=== PATIENT | female | born 1975 | race Caucasian/White ===

== ENCOUNTER 2019-03-03 19:47 | Inpatient (IN) | payer OTHER ==
[2019-03-03 19:58] VITALS: BMI 29.7
[2019-03-03] MEDS ORDERED: Albuterol-Ipratrop 3 mg / 0.5 (3 ml) UD IH STA (20:08)
--- NOTE | 2019-03-03 20:13 | ED PDOC ---
Arrival/HPI - General Chief Complaint: Shortness Of Breath Time Seen by Provider: 03/03/19 19:53 Historian: Patient - History of Present Illness Narrative History of Present Illness (Text): 03/03/19 20:11 A 43 year old female, whose past medical history includes hypothyroidism/Eneida's disease, presents to the emergency department complaining of shortness of breath since last night. Patient reports she has such difficulty breathing, she feels the need to take deep breaths. Patient denies any chest pain, back pain, fever, chills, cough, or any other complaints at this time. Time/Duration: Other (since last night) Past Medical History - Provider Review Nursing Documentation Reviewed: Yes - Cardiac Hx Cardiac Disorders: No - Pulmonary Hx Respiratory Disorders: No - Neurological Hx Neurological Disorder: No - HEENT Hx HEENT Disorder: No - Renal Hx Renal Disorder: No - Endocrine/Metabolic Hx Endocrine Disorders: Yes Hx Hypothyroidism: Yes (with Eneida's) - Hematological/Oncological Hx Blood Disorders: No - Integumentary Hx Dermatological Disorder: No - Musculoskeletal/Rheumatological Hx Musculoskeletal Disorders: No - Gastrointestinal Hx Gastrointestinal Disorders: No - Genitourinary/Gynecological Hx Genitourinary Disorders: No - Psychiatric Hx Psychophysiologic Disorder: No Hx Substance Use: No Family/Social History - Physician Review Nursing Documentation Reviewed: Yes Family/Social History: No Known Family HX Smoking Status: Light Smoker < 10 Cigarettes Daily Hx Alcohol Use: No Hx Substance Use: No Allergies/Home Meds Allergies/Adverse Reactions: Allergies Penicillins Allergy (Verified 03/03/19 19:57) RASH Home Medications: Home Meds Medication Instructions Recorded Confirmed Levothyroxine [Levoxyl] 0.175 mg PO DAILY 03/03/19 03/03/19 Review of Systems - Physician Review All systems were reviewed & negative as marked: Yes - Review of Systems Constitutional: absent: Fevers, Night Sweats Respiratory: SOB. absent: Cough Cardiovascular: absent: Chest Pain Musculoskeletal: absent: Back Pain Physical Exam Vital Signs Reviewed: Yes Vital Signs Pulse Resp BP Pulse Ox 03/03/19 19:58 106 H 20 140/86 100 Blood Pressure: Normal Pulse: Tachycardic Respiratory Rate: Normal Appearance: Positive for: Well-Appearing, Non-Toxic, Comfortable Pain Distress: None Mental Status: Positive for: Alert and Oriented X 3 - Systems Exam Head: Present: Atraumatic, Normocephalic Pupils: Present: PERRL Extroacular Muscles: Present: EOMI Conjunctiva: Present: Other (pale) Mouth: Present: Moist Mucous Membranes Neck: Present: Normal Range of Motion, Other (neck supple) Respiratory/Chest: Present: Clear to Auscultation, Good Air Exchange. No: Respiratory Distress, Accessory Muscle Use Cardiovascular: Present: Normal S1, S2, Tachycardic. No: Murmurs Abdomen: No: Tenderness, Distention, Peritoneal Signs Upper Extremity: Present: Normal Inspection. No: Cyanosis, Edema Lower Extremity: Present: Normal Inspection, NORMAL PULSES, Normal ROM. No: Edema, CALF TENDERNESS, Cyanosis Neurological: Present: GCS=15, CN II-XII Intact, Speech Normal Skin: Present: Warm, Dry, Pale. No: Rashes Psychiatric: Present: Alert, Oriented x 3, Normal Insight, Normal Concentration Medical Decision Making ED Course and Treatment: 03/03/19 20:13 Impression: 43 year old female with shortness of breath. Physical exam shows patient is tachycardic. Plan: -- EKG -- Chest X-ray -- Albuterol -- Labs -- CT Angio PE Protocol -- Reassess and disposition Progress Notes: EKG: Ordered, reviewed, and independently interpreted the EKG. Rate : 102 BPM Rhythm : Sinus tachycardia Interpretation : Non-specific ST- and T- wave changes. Comparison : No previous EKG for comparison. 03/03/19 21:36 Case discussed with manager of medical and Dr. Franco who is aware and agrees with the plan. Accepts patient into hospitalist service. EXAM: CTA Chest with Intravenous Contrast for Pulmonary Embolism Electronically signed on March 03, 2019 10:45:49 PM EDT by: Mik Cuevas M.D. IMPRESSION: Unremarkable pulmonary embolism protocol CTA of the chest. - RAD Interpretation Radiology Orders: 03/03/19 20:03 CHEST PORTABLE [RAD] Stat - Medication Orders Current Medication Orders: Albuterol/Ipratropium (Duoneb 3 Mg/0.5 Mg (3 Ml) Ud) 3 ml IH ONCE STA Stop: 03/03/19 20:09 - Scribe Statement The provider has reviewed the documentation as recorded by the Gretta Pineda Provider Scribe Attestation: All medical record entries made by the Scribe were at my direction and personally dictated by me. I have reviewed the chart and agree that the record accurately reflects my personal performance of the history, physical exam, medical decision making, and the department course for this patient. I have also personally directed, reviewed, and agree with the discharge instructions and disposition. Disposition/Present on Arrival - Present on Arrival Any Indicators Present on Arrival: No History of DVT/PE: No History of Uncontrolled Diabetes: No Urinary Catheter: No History of Decub. Ulcer: No History Surgical Site Infection Following: None - Disposition Have Diagnosis and Disposition been Completed?: Yes Diagnosis: Anemia, Dyspnea Disposition: HOSPITALIZED Disposition Time: 23:44 Patient Plan: Admission Patient Problems: Current Active Problems Problem Status Onset Anemia Acute Dyspnea Acute Condition: STABLE
[2019-03-03 20:32] LABS: HEMOGLOBIN 7.4 g/dL (12.0-16.0); MEAN CELL VOLUME 58.7 fl (80.0-105.0); MEAN CORPUSCULAR HEMOGLOBIN 16.3 pg (25.0-35.0); MEAN CORPUSCULAR HGB CONC 27.8 g/dl (31.0-37.0); PLATELET COUNT 279 10^3/uL (120.0-450.0); RBC 4.53 10^6/uL (3.5-6.1); RED CELL DISTRIBUTION WIDTH 19.2 % (11.5-14.5)
[2019-03-03 20:36] LABS: INR 1.16; PROTHROMBIN TIME 12.9 SECONDS (9.4-12.5)
[2019-03-03 20:37] LABS: ALB/GLOB RATIO 1.5 (1.1-1.8); ALBUMIN 4.2 g/dL (3.0-4.8); ALT/SGPT 24 U/L (7-56); AST/SGOT 22 U/L (14-36); BLOOD UREA NITROGEN 12 mg/dL (7-21); CALCIUM 9.2 mg/dL (8.4-10.5); GFR NON-AFRICAN AMERICAN > 60
[2019-03-03 20:48] LABS: TROPONIN I < 0.01 ng/mL
[2019-03-03 20:57] LABS: FREE T4 1.44 ng/dL (0.78-2.19)
[2019-03-03] MEDS ORDERED: Iohexol 350 MG/100 ML VIAL ONE (21:23)
--- NOTE | 2019-03-03 23:05 | CP.PCM.HP ---
<Dorian Christensen - Last Filed: 03/04/19 01:30> History of Present Illness - History of Present Illness History of Present Illness: Dorian Christensen, PGY1 Hospital H&P This is a 43 year old female with PMH of hypothyroidism and ?anxiety presenting to the hospital for one day history of SOB and generalized weakness over the last couple of months. Patient states she was in bed and suddenly developed SOB and began gasping for air. Symptoms last approximately 30 minutes and were associated with nausea. Symptoms were exacerbating by laying flat and anxiety and improved with sitting up. Patient denies formally being diagnosed with anxiety but admits anxiety throughout her adult life for which she smokes cigarettes. She also admits to generalized weakness over the last 3-4 months and is unsure of the etiology. She admits to irrgeular menstrual cycles over the last one year associated with heavy bleeding as well as passage of clots. Her LMP was February 20 and lasted until February 27, 2019. She admits to sexual contact with her partner and uses contraception. She currently denies CP, fevers, vom iting, abdominal pain, urinary complaints, numbness, tingling, swelling, diarrhea, constipation, headaches, dizziness, recent travel, recent sickness, recent trauma and recent lifestyle change. 12 point ROS noted here, otherwise unremarkable. PMH: hypothyroidism and ?anxiety PMD: denies Meds: levothyroxine 175mcg SH: admits to smoking 3 ciggs/day for 18 years, denies alcohol and drug use Sx: denies surgeries All: PCN FH: denies LMP: February 20, lasted 7 days, associated with heavy bleeding and passage of clots Present on Admission - Present on Admission Any Indicators Present on Admission: No Past Patient History - Past Social History Smoking Status: Light Smoker < 10 Cigarettes Daily - CARDIAC Hx Cardiac Disorders: No - PULMONARY Hx Respiratory Disorders: No - NEUROLOGICAL Hx Neurological Disorder: No - HEENT Hx HEENT Problems: No - RENAL Hx Chronic Kidney Disease: No - ENDOCRINE/METABOLIC Hx Endocrine Disorders: Yes Hx Hypothyroidism: Yes (with Eneida's) - HEMATOLOGICAL/ONCOLOGICAL Hx Blood Disorders: No - INTEGUMENTARY Hx Dermatological Problems: No - MUSCULOSKELETAL/RHEUMATOLOGICAL Hx Musculoskeletal Disorders: No - GASTROINTESTINAL Hx Gastrointestinal Disorders: No - GENITOURINARY/GYNECOLOGICAL Hx Genitourinary Disorders: No - PSYCHIATRIC Hx Psychophysiologic Disorder: No Hx Substance Use: No - SURGICAL HISTORY Hx Surgeries: No Meds Allergies/Adverse Reactions: Allergies Allergy/AdvReac Type Severity Reaction Status Date / Time Penicillins Allergy RASH Verified 03/03/19 19:57 Physical Exam - Constitutional Appears: No Acute Distress - Head Exam Head Exam: ATRAUMATIC, NORMAL INSPECTION - Eye Exam Eye Exam: EOMI Pupil Exam: PERRL - ENT Exam ENT Exam: Mucous Membranes Dry - Neck Exam Neck exam: Positive for: Normal Inspection - Respiratory Exam Respiratory Exam: Clear to Auscultation Bilateral. absent: Accessory Muscle Use, Wheezes, Respiratory Distress - Cardiovascular Exam Cardiovascular Exam: REGULAR RHYTHM, +S1, +S2 - GI/Abdominal Exam GI & Abdominal Exam: Normal Bowel Sounds, Soft. absent: Firm, Guarding, Rebound, Rigid, Tenderness - Extremities Exam Extremities exam: Positive for: normal inspection, pedal pulses present. Negative for: calf tenderness - Back Exam Back exam: NORMAL INSPECTION - Neurological Exam Neurological exam: Alert, CN II-XII Intact, Oriented x3 - Skin Skin Exam: Dry, Pallor, Warm Results - Vital Signs Recent Vital Signs: Last Vital Signs Temp Pulse 88 03/03/19 21:53 Resp 20 03/03/19 21:53 BP 113/70 03/03/19 21:53 Pulse Ox 100 03/03/19 21:53 - Labs Result Diagrams: 03/03/19 20:18 03/03/19 20:18 Labs: Laboratory Results - last 24 hr 03/03/19 03/03/19 03/03/19 20:18 20:18 20:18 WBC RBC Hgb Hct MCV MCH MCHC RDW Plt Count PT 12.9 H INR 1.16 APTT 28.0 D-Dimer, Quantitative Sodium 140 Potassium 4.2 Chloride 107 Carbon Dioxide 23 Anion Gap 14 BUN 12 Creatinine 0.6 L Est GFR ( Amer) > 60 Est GFR (Non-Af Amer) > 60 Random Glucose 111 H Calcium 9.2 Total Bilirubin 0.4 AST 22 ALT 24 Alkaline Phosphatase 65 Lactate Dehydrogenase 420 Total Creatine Kinase 47 Troponin I < 0.01 Total Protein 7.1 Albumin 4.2 Globulin 2.9 Albumin/Globulin Ratio 1.5 Free T4 1.44 TSH 3rd Generation 8.50 H 03/03/19 03/03/19 20:18 20:18 WBC 6.0 RBC 4.53 Hgb 7.4 L Hct 26.6 L MCV 58.7 L MCH 16.3 L MCHC 27.8 L RDW 19.2 H Plt Count 279 PT INR APTT D-Dimer, Quantitative 270 H Sodium Potassium Chloride Carbon Dioxide Anion Gap BUN Creatinine Est GFR ( Amer) Est GFR (Non-Af Amer) Random Glucose Calcium Total Bilirubin AST ALT Alkaline Phosphatase Lactate Dehydrogenase Total Creatine Kinase Troponin I Total Protein Albumin Globulin Albumin/Globulin Ratio Free T4 TSH 3rd Generation Assessment & Plan - Assessment and Plan (Free Text) Assessment: This is a 43 year old female with PMH of hypothyroidism and ?anxiety presenting to the hospital for one day history of SOB and generalized weakness over the last couple of months. Plan: SOB -2/2 anemia vs anxiety -Hg of 7.4 on admission, MCV of 58.7 -iron studies pending -receiving 1 unit PRBC in the ED -mildly elevated d-dimer -CTA pending Hx of hypothyroidism -continue levothyroxine 175mcg -TSH of 8.5, free T4 of 1.44 PPX -pepcid -SCD -regular diet Patient seen and case discussed with attending, Dr. Franco <Claire Franco - Last Filed: 03/04/19 05:17> Results - Vital Signs Recent Vital Signs: Last Vital Signs Temp 98.4 F 03/04/19 03:16 Pulse 76 03/04/19 03:16 Resp 18 03/04/19 03:16 BP 104/65 03/04/19 03:16 Pulse Ox 98 03/04/19 01:11 - Labs Result Diagrams: 03/03/19 20:18 03/03/19 20:18 Labs: Laboratory Results - last 24 hr 03/03/19 03/03/19 03/03/19 20:18 20:18 20:18 WBC RBC Hgb Hct MCV MCH MCHC RDW Plt Count Retic Count PT 12.9 H INR 1.16 APTT 28.0 D-Dimer, Quantitative Sodium 140 Potassium 4.2 Chloride 107 Carbon Dioxide 23 Anion Gap 14 BUN 12 Creatinine 0.6 L Est GFR ( Amer) > 60 Est GFR (Non-Af Amer) > 60 Random Glucose 111 H Calcium 9.2 Iron TIBC % Saturation Total Bilirubin 0.4 AST 22 ALT 24 Alkaline Phosphatase 65 Lactate Dehydrogenase 420 Total Creatine Kinase 47 Troponin I < 0.01 Total Protein 7.1 Albumin 4.2 Globulin 2.9 Albumin/Globulin Ratio 1.5 Free T4 1.44 TSH 3rd Generation 8.50 H Blood Type Blood Type Confirm Antibody Screen Crossmatch BBK History Checked 03/03/19 03/03/19 03/03/19 20:18 20:18 20:18 WBC 6.0 RBC 4.53 Hgb 7.4 L Hct 26.6 L MCV 58.7 L MCH 16.3 L MCHC 27.8 L RDW 19.2 H Plt Count 279 Retic Count 1.71 H PT INR APTT D-Dimer, Quantitative 270 H Sodium Potassium Chloride Carbon Dioxide Anion Gap BUN Creatinine Est GFR ( Amer) Est GFR (Non-Af Amer) Random Glucose Calcium Iron TIBC % Saturation Total Bilirubin AST ALT Alkaline Phosphatase Lactate Dehydrogenase Total Creatine Kinase Troponin I Total Protein Albumin Globulin Albumin/Globulin Ratio Free T4 TSH 3rd Generation Blood Type Blood Type Confirm Antibody Screen Crossmatch BBK History Checked 03/03/19 03/03/19 03/04/19 20:18 23:02 00:44 WBC RBC Hgb Hct MCV MCH MCHC RDW Plt Count Retic Count PT INR APTT D-Dimer, Quantitative Sodium Potassium Chloride Carbon Dioxide Anion Gap BUN Creatinine Est GFR ( Amer) Est GFR (Non-Af Amer) Random Glucose Calcium Iron 19 L TIBC 338 % Saturation 6 L Total Bilirubin AST ALT Alkaline Phosphatase Lactate Dehydrogenase Total Creatine Kinase Troponin I Total Protein Albumin Globulin Albumin/Globulin Ratio Free T4 TSH 3rd Generation Blood Type O POSITIVE Blood Type Confirm O POSITIVE Antibody Screen Negative Crossmatch See Detail BBK History Checked No verified bt Attending/Attestation - Attestation I have personally seen and examined this patient.: Yes I have fully participated in the care of the patient.: Yes I have reviewed all pertinent clinical information: Yes
[2019-03-04 00:07] LABS: IRON 19 ug/dL (45-180)
[2019-03-04 00:17] LABS: % IRON SATURATION 6 % (20-55); TOTAL IRON BINDING CAPACITY 338 ug/dL (265-497)
[2019-03-04 05:27] VITALS: BP 118/70; PULSE 73
[2019-03-04 07:40] LABS: BASO # 0.01 K/mm3 (0.0-2.0); BASO % 0.2 % (0.0-3.0); EOS % 0.7 % (1.5-5.0); LYMPH # 1.8 (1.2-3.4); LYMPH % 31.1 % (22.0-35.0); MEAN CELL VOLUME 60.6 fl (80.0-105.0); MEAN CORPUSCULAR HGB CONC 28.1 g/dl (31.0-37.0); MONO # 0.3 (0.1-0.6); MONO % 4.4 % (1.0-6.0); PLATELET COUNT 276 10^3/uL (120.0-450.0); RED CELL DISTRIBUTION WIDTH 21.9 % (11.5-14.5); WHITE BLOOD COUNT 5.7 10^3/uL (4.5-11.0)
[2019-03-04 07:44] LABS: ALB/GLOB RATIO 1.4 (1.1-1.8); ALBUMIN 3.9 g/dL (3.0-4.8); ALT/SGPT 20 U/L (7-56); AST/SGOT 18 U/L (14-36); BLOOD UREA NITROGEN 8 mg/dL (7-21); CALCIUM 8.8 mg/dL (8.4-10.5); GFR NON-AFRICAN AMERICAN > 60
[2019-03-04 07:50] VITALS: RESP 20; TEMP 98.1; O2SAT 97
[2019-03-04] MEDS ORDERED: Levothyroxine 175 MCG TAB PO SCH (10:00)
[2019-03-04] MEDS ORDERED: Enoxaparin 40 mg Syringe SC SCH (10:00)
--- NOTE | 2019-03-04 10:46 | CARD ---
APPROVED REPORT Date of service: 03/03/2019 EKG Measurement Heart [id number] <Conclusion> Sinus tachycardia Otherwise normal ECG
--- NOTE | 2019-03-04 11:11 | CT ---
Date of service: 03/03/2019 PROCEDURE: CT Chest with contrast (Pulmonary Angiogram) HISTORY: sob COMPARISON: None available. TECHNIQUE: Axial computed tomography images were obtained of the chest in the pulmonary arterial phase of enhancement. Coronal and sagittal reformatted images were created and reviewed. Intravenous contrast dose: 93 mL Omnipaque 350 Radiation dose: Total exam DLP = 576.36 mGy-cm. This CT exam was performed using one or more of the following dose reduction techniques: Automated exposure control, adjustment of the mA and/or kV according to patient size, and/or use of iterative reconstruction technique. FINDINGS: PULMONARY ARTERIES: Unremarkable. No pulmonary embolism. AORTA: No acute findings. No thoracic aortic aneurysm. No aortic atherosclerotic calcification or mural plaque present. LUNGS: Unremarkable. No nodule, mass or pulmonary consolidation. PLEURAL SPACES: Unremarkable. No effusion or pneumothorax. HEART: Unremarkable. No cardiomegaly. No significant pericardial effusion. LYMPH NODES: No lymphadenopathy. BONES, CHEST WALL: Unremarkable. No fracture or destructive lesion OTHER FINDINGS: Nonspecific hypodense area in the left hepatic lobe measuring 3.2 x 2.0 cm. Small hiatal hernia. IMPRESSION: Unremarkable CT pulmonary angiogram. No pulmonary embolus. Nonspecific hypodense area in the left hepatic lobe measuring 3.2 x 2.0 cm. Multiphasic contrast-enhanced CT/MRI of the liver can be obtained for further characterization. This finding was not reported by tele radiology.
--- NOTE | 2019-03-04 11:12 | RAD ---
Date of service: 03/03/2019 PROCEDURE: CHEST RADIOGRAPH, 1 VIEW HISTORY: sob COMPARISON: None available. FINDINGS: LUNGS: Clear. PLEURA: No pneumothorax or pleural fluid seen. CARDIOVASCULAR: No aortic atherosclerotic calcification present. Normal. OSSEOUS STRUCTURES: No significant abnormalities. VISUALIZED UPPER ABDOMEN: Normal. OTHER FINDINGS: None. IMPRESSION: No active disease.
--- NOTE | 2019-03-04 11:15 | CP.PCM.DIS ---
<Dorian Christensen - Last Filed: 03/04/19 11:05> Provider - Provider Date of Admission: 03/03/19 23:45 Attending physician: Anne Marie Mclaughlin DO Primary care physician: NO PRIMARY CARE PROVIDER Time Spent in preparation of Discharge (in minutes): 35 Hospital Course - Lab Results Lab Results: Most Recent Lab Values WBC 5.7 10^3/uL (4.5-11.0) 03/04/19 06:30 RBC 4.70 10^6/uL (3.5-6.1) 03/04/19 06:30 Hgb 8.0 g/dL (12.0-16.0) L 03/04/19 06:30 Hct 28.5 % (36.0-48.0) L 03/04/19 06:30 MCV 60.6 fl (80.0-105.0) L 03/04/19 06:30 MCH 17.0 pg (25.0-35.0) L 03/04/19 06:30 MCHC 28.1 g/dl (31.0-37.0) L 03/04/19 06:30 RDW 21.9 % (11.5-14.5) H 03/04/19 06:30 Plt Count 276 10^3/uL (120.0-450.0) 03/04/19 06:30 Neut % (Auto) 63.6 % (50.0-68.0) 03/04/19 06:30 Lymph % (Auto) 31.1 % (22.0-35.0) 03/04/19 06:30 Grayson % (Auto) 4.4 % (1.0-6.0) 03/04/19 06:30 Eos % (Auto) 0.7 % (1.5-5.0) L 03/04/19 06:30 Baso % (Auto) 0.2 % (0.0-3.0) 03/04/19 06:30 Lymph # (Auto) 1.8 (1.2-3.4) 03/04/19 06:30 Grayson # (Auto) 0.3 (0.1-0.6) 03/04/19 06:30 Eos # (Auto) 0.0 (0.0-0.7) 03/04/19 06:30 Baso # (Auto) 0.01 K/mm3 (0.0-2.0) 03/04/19 06:30 Absolute Neuts (auto) 3.64 (1.4-6.5) 03/04/19 06:30 Retic Count 1.71 % (0.5-1.5) H 03/03/19 20:18 PT 12.9 SECONDS (9.4-12.5) H 03/03/19 20:18 INR 1.16 03/03/19 20:18 APTT 28.0 Seconds (26.9-38.3) 03/03/19 20:18 D-Dimer, Quantitative 270 ng/mlDDU (0-243) H 03/03/19 20:18 Sodium 137 mmol/L (132-148) 03/04/19 06:30 Potassium 3.6 mmol/L (3.6-5.0) 03/04/19 06:30 Chloride 106 mmol/L (98-107) 03/04/19 06:30 Carbon Dioxide 24 mmol/L (21-33) 03/04/19 06:30 Anion Gap 11 (10-20) 03/04/19 06:30 BUN 8 mg/dL (7-21) 03/04/19 06:30 Creatinine 0.6 mg/dl (0.7-1.2) L 03/04/19 06:30 Est GFR ( Amer) > 60 03/04/19 06:30 Est GFR (Non-Af Amer) > 60 03/04/19 06:30 Random Glucose 101 mg/dL (70-110) 03/04/19 06:30 Calcium 8.8 mg/dL (8.4-10.5) 03/04/19 06:30 Phosphorus 4.1 mg/dL (2.5-4.5) 03/04/19 06:30 Magnesium 2.0 mg/dL (1.7-2.2) 03/04/19 06:30 Iron 19 ug/dL (45-180) L 03/03/19 20:18 TIBC 338 ug/dL (265-497) 03/03/19 20:18 % Saturation 6 % (20-55) L 03/03/19 20:18 Total Bilirubin 0.5 mg/dL (0.2-1.3) 03/04/19 06:30 AST 18 U/L (14-36) 03/04/19 06:30 ALT 20 U/L (7-56) 03/04/19 06:30 Alkaline Phosphatase 68 U/L (38-126) 03/04/19 06:30 Lactate Dehydrogenase 420 U/L (333-699) 03/03/19 20:18 Total Creatine Kinase 47 U/L (35-230) 03/03/19 20:18 Troponin I < 0.01 ng/mL 03/03/19 20:18 Total Protein 6.6 g/dL (5.8-8.3) 03/04/19 06:30 Albumin 3.9 g/dL (3.0-4.8) 03/04/19 06:30 Globulin 2.8 gm/dL 03/04/19 06:30 Albumin/Globulin Ratio 1.4 (1.1-1.8) 03/04/19 06:30 Free T4 1.44 ng/dL (0.78-2.19) 03/03/19 20:18 TSH 3rd Generation 8.50 mIU/mL (0.46-4.68) H 03/03/19 20:18 Blood Type O POSITIVE 03/03/19 23:02 Blood Type Confirm O POSITIVE 03/04/19 00:44 Antibody Screen Negative 03/03/19 23:02 Crossmatch See Detail 03/03/19 23:02 BBK History Checked No verified bt 03/03/19 23:02 Physical Exam - Constitutional Appears: No Acute Distress - Head Exam Head Exam: ATRAUMATIC, NORMAL INSPECTION - Eye Exam Eye Exam: EOMI Pupil Exam: PERRL - ENT Exam ENT Exam: Mucous Membranes moist - Neck Exam Neck exam: Positive for: Normal Inspection - Respiratory Exam Respiratory Exam: Clear to Auscultation Bilateral. absent: Accessory Muscle Use, Wheezes, Respiratory Distress - Cardiovascular Exam Cardiovascular Exam: REGULAR RHYTHM, +S1, +S2 - GI/Abdominal Exam GI & Abdominal Exam: Normal Bowel Sounds, Soft. absent: Firm, Guarding, Rebound, Rigid, Tenderness - Extremities Exam Extremities exam: Positive for: normal inspection, pedal pulses present. Negative for: calf tenderness - Back Exam Back exam: NORMAL INSPECTION - Neurological Exam Neurological exam: Alert, CN II-XII Intact, Oriented x3 - Skin Skin Exam: Dry, Warm - Hospital Course Hospital Course: Upon admission, 43 year old female with PMH of hypothyroidism and ?anxiety presenting to the hospital for one day history of SOB and generalized weakness over the last couple of months. Patient states she was in bed and suddenly developed SOB and began gasping for air. Symptoms last approximately 30 minutes and were associated with nausea. Symptoms were exacerbating by laying flat and anxiety and improved with sitting up. Patient denies formally being diagnosed with anxiety but admits anxiety throughout her adult life for which she smokes cigarettes. She also admits to generalized weakness over the last 3-4 months and is unsure of the etiology. She admits to irrgeular menstrual cycles over the last one year associated with heavy bleeding as well as passage of clots. Her LMP was February 20 and lasted until February 27, 2019. During hospital course, patient noted to have hemoglobin of 7.4 and tachycardia with pulse of 106 and O2 sat of 100 percent on room air. Patient transfused 1 unit PRBC and repeat hemoglobin the following day was 8. Patient noted to have mildly elevated d-dimer and CTA was subsequently ordered with the preliminary read not showing a PE. Patient also noted to have elevated TSH with normal free T4. Patient today states she is feeling much better and patient agrees to follow up with Dr. Michael for her hypothyroidism, Dr. Mclaughlin for her heavy menstrual bleeding and Dr. Hawthorne to establish primary care within 5-7 days of discharge. Patient also agrees to start taking ferrous gluconate, multivitamins and miralax. Patient states she did not need any refills for levothyroxine. Patient is tolerating her diet without complications and is resting comfortably. Patient agrees with discharge today and all of her questions were answered to satisfaction. Discharge Plan - Discharge Medications Prescriptions: Ferrous Gluconate [Fergon] 324 mg PO BID #28 tab Multimineral/Multivitamin [Therapeutic-M Tab] 1 tab PO DAILY #30 tab Polyethylene Glycol 3350 [Miralax] 17 gm PO DAILY #14 ml - Follow Up Plan Condition: STABLE Disposition: HOME/ ROUTINE Instructions: Absent or Irregular Periods, Anemia Caused by Low Iron, Adult (DC) Additional Instructions: Follow up with a primary care doctor in 3-5 days of discharge. You can see Dr Hawthorne for your primary care needs. Follow up with [facility] within 1 week of discharge. Follow up with an [facility] within 1 week of discharge. You can resume your home medications. You are started on iron tablets and multivitamin. Iron tablets may cause constipation. You can Miralax as needed for constipation. Please return to the ED for any new worsening symptoms. Referrals: Tish Michael MD [Medical Doctor] - Tapan Hawthorne DO [Staff Provider] - Pamela Mclaughlin MD [Medical Doctor] - <FallonSavita leach - Last Filed: 03/05/19 13:30> Provider - Provider Date of Admission: 03/03/19 23:45 Attending physician: Anne Marie Mclaughlin DO Primary care physician: NO PRIMARY CARE PROVIDER Hospital Course - Lab Results Lab Results: Most Recent Lab Values WBC 5.7 10^3/uL (4.5-11.0) 03/04/19 06:30 RBC 4.70 10^6/uL (3.5-6.1) 03/04/19 06:30 Hgb 8.0 g/dL (12.0-16.0) L 03/04/19 06:30 Hct 28.5 % (36.0-48.0) L 03/04/19 06:30 MCV 60.6 fl (80.0-105.0) L 03/04/19 06:30 MCH 17.0 pg (25.0-35.0) L 03/04/19 06:30 MCHC 28.1 g/dl (31.0-37.0) L 03/04/19 06:30 RDW 21.9 % (11.5-14.5) H 03/04/19 06:30 Plt Count 276 10^3/uL (120.0-450.0) 03/04/19 06:30 Neut % (Auto) 63.6 % (50.0-68.0) 03/04/19 06:30 Lymph % (Auto) 31.1 % (22.0-35.0) 03/04/19 06:30 Grayson % (Auto) 4.4 % (1.0-6.0) 03/04/19 06:30 Eos % (Auto) 0.7 % (1.5-5.0) L 03/04/19 06:30 Baso % (Auto) 0.2 % (0.0-3.0) 03/04/19 06:30 Lymph # (Auto) 1.8 (1.2-3.4) 03/04/19 06:30 Grayson # (Auto) 0.3 (0.1-0.6) 03/04/19 06:30 Eos # (Auto) 0.0 (0.0-0.7) 03/04/19 06:30 Baso # (Auto) 0.01 K/mm3 (0.0-2.0) 03/04/19 06:30 Absolute Neuts (auto) 3.64 (1.4-6.5) 03/04/19 06:30 Retic Count 1.71 % (0.5-1.5) H 03/03/19 20:18 PT 12.9 SECONDS (9.4-12.5) H 03/03/19 20:18 INR 1.16 03/03/19 20:18 APTT 28.0 Seconds (26.9-38.3) 03/03/19 20:18 D-Dimer, Quantitative 270 ng/mlDDU (0-243) H 03/03/19 20:18 Sodium 137 mmol/L (132-148) 03/04/19 06:30 Potassium 3.6 mmol/L (3.6-5.0) 03/04/19 06:30 Chloride 106 mmol/L (98-107) 03/04/19 06:30 Carbon Dioxide 24 mmol/L (21-33) 03/04/19 06:30 Anion Gap 11 (10-20) 03/04/19 06:30 BUN 8 mg/dL (7-21) 03/04/19 06:30 Creatinine 0.6 mg/dl (0.7-1.2) L 03/04/19 06:30 Est GFR ( Amer) > 60 03/04/19 06:30 Est GFR (Non-Af Amer) > 60 03/04/19 06:30 Random Glucose 101 mg/dL (70-110) 03/04/19 06:30 Calcium 8.8 mg/dL (8.4-10.5) 03/04/19 06:30 Phosphorus 4.1 mg/dL (2.5-4.5) 03/04/19 06:30 Magnesium 2.0 mg/dL (1.7-2.2) 03/04/19 06:30 Iron 19 ug/dL (45-180) L 03/03/19 20:18 TIBC 338 ug/dL (265-497) 03/03/19 20:18 % Saturation 6 % (20-55) L 03/03/19 20:18 Ferritin 2.5 ng/mL 03/03/19 20:18 Total Bilirubin 0.5 mg/dL (0.2-1.3) 03/04/19 06:30 AST 18 U/L (14-36) 03/04/19 06:30 ALT 20 U/L (7-56) 03/04/19 06:30 Alkaline Phosphatase 68 U/L (38-126) 03/04/19 06:30 Lactate Dehydrogenase 420 U/L (333-699) 03/03/19 20:18 Total Creatine Kinase 47 U/L (35-230) 03/03/19 20:18 Troponin I < 0.01 ng/mL 03/03/19 20:18 Total Protein 6.6 g/dL (5.8-8.3) 03/04/19 06:30 Albumin 3.9 g/dL (3.0-4.8) 03/04/19 06:30 Globulin 2.8 gm/dL 03/04/19 06:30 Albumin/Globulin Ratio 1.4 (1.1-1.8) 03/04/19 06:30 Free T4 1.44 ng/dL (0.78-2.19) 03/03/19 20:18 TSH 3rd Generation 8.50 mIU/mL (0.46-4.68) H 03/03/19 20:18 Blood Type O POSITIVE 03/03/19 23:02 Blood Type Confirm O POSITIVE 03/04/19 00:44 Antibody Screen Negative 03/03/19 23:02 Crossmatch See Detail 03/03/19 23:02 BBK History Checked No verified bt 03/03/19 23:02 Attending/Attestation - Attestation I have personally seen and examined this patient.: Yes I have fully participated in the care of the patient.: Yes I have reviewed all pertinent clinical information, including history, physical exam and plan: Yes Notes (Text): 03/05/19 13:25 Attending note; Patient seen and examined with resident resident. Patient is alert and awake. Denies any chest pain, shortness of breath. Denies any palpitations. Denies any nausea, vomiting. Tolerating diet well. Ambulating without any difficulty. Denies any vaginal bleeding. Patient is a 43 year old female with PMH of hypothyroidism and anxiety is admitted for SOB and generalized weakness over the last couple of months. 1. Generalized weakness secondary to significant anemia; patient has dysfunctional uterine bleeding with anemia. Not on p.o. iron supplementation due to constipation. Did not follow-up with PMD or [facility]. Currently no active vaginal bleeding. 1 unit of PRBC transfusion given. IV iron given. Patient is strongly advised to follow-up with [facility] as outpatient. 2. Shortness of breath secondary to anemia; CT angios negative. Patient is not tachycardic or hypoxic. 3.hypothyroidism; continue Synthroid. Patient is advised to follow-up with PMD of choice. Referred to [facility] as outpatient. Patient agreed to follow-up with [facility] as outpatient.
== END 2019-03-04 14:06 | disposition home or self-care (01) | DRG 812 ==
LOC: ED 19:47 → ERH 23:45 → 5RNO 03-04 01:50
PROVIDERS: ADMIT Hospitalist; ATTEND Hospitalist
PROC: 30233N1 Transfusion of Nonautologous Red Blood Cells into Peripheral Vein, Percutaneous Approach (ICD-10-PCS; principal; 2019-03-04)
DX: D64.9 Anemia, unspecified (principal); N93.8 Other specified abnormal uterine and vaginal bleeding; E03.9 Hypothyroidism, unspecified; F17.210 Nicotine dependence, cigarettes, uncomplicated; F41.9 Anxiety disorder, unspecified; K59.00 Constipation, unspecified; Z88.0 Allergy status to penicillin